=== PATIENT | female | born 1955 | race Caucasian/White ===

== ENCOUNTER → 2018-07-02 | Outpatient (CLI) | payer MEDICARE, MEDICAID ==
--- NOTE | 2018-07-02 09:56 | Diagnostic Imaging Report ---
CLINICAL INDICATION: Patient has had several falls within the last few months. Patient has headaches and vision problems. EXAM: MRI of the brain performed without IV contrast. Sequences include axial DWI, ADC map, axial T2, axial FLAIR, axial T1, axial gradient echo, and sagittal T1. COMPARISON: None. FINDINGS: There is no evidence of acute cerebral infarct, intracranial hemorrhage, or gross mass effect. The brain parenchymal volume appears appropriate for patient's age. There are multiple focal areas of high T2 signal white matter changes involving both cerebral hemispheres, likely representing mild chronic small vessel ischemic disease. There is normal zuñiga-white matter distinction. There is no significant midline shift or herniation. The false pass of Rangel vascular structures show no gross abnormality as visualized. The pituitary gland, sella, and suprasellar regions are unremarkable as visualized. There is no evidence of hydrocephalus. The basal cisterns are unremarkable. The skull, extracranial soft tissue, and orbits are unremarkable. The paranasal sinuses are unremarkable. Temporal bones show no significant abnormality. IMPRESSION: Unremarkable MRI of the brain with mild chronic small vessel ischemic disease. Dictated by: Dictated on workstation # [id number]
== END ==
LOC: RAD 08:43
PROVIDERS: ATTEND Pediatrics
DX: I67.82 Cerebral ischemia (principal); R29.6 Repeated falls; H53.8 Other visual disturbances; Z87.828 Personal history of other (healed) physical injury and trauma
CPT/HCPCS: 70551

== ENCOUNTER → 2020-05-09 | Outpatient (CLI) | payer MEDICARE, MEDICAID ==
--- NOTE | 2020-05-09 11:08 | Diagnostic Imaging Report ---
CT Lung Screening INDICATION:45 pack year smoking history for baseline low-dose CT screening TECHNIQUE: Noncontrast, low-dose CT imaging performed according to the lung cancer screening protocol. Auto Exposure Controls were utilize during the CT exam to meet ALARA standards for radiation dose reduction. COMPARISON:None FINDINGS:Partly calcified benign appearing granuloma left lower lobe posteromedially measured 1 cm. There is some partial atelectasis in the right lower lobe at the lateral costophrenic sulcus. No noncalcified or suspicious pulmonary nodule. No findings to suggest neoplasm. There is no thoracic effusion or pneumothorax. The aorta is calcified but nonaneurysmal. There is fairly dense calcifications associated with the left main and left anterior descending coronary arteries. Visualized upper abdomen nonacute IMPRESSION:No suspicious lung mass or findings of active lung cancer LUNG-RADS CATEGORY:Category 1 MODIFIER:None OTHER SIGNIFICANT FINDINGS:Coronary atherosclerotic vascular calcifications, benign granulomatous residua, no acute appearing abnormality Dictated by: Dictated on workstation # [id number]
--- NOTE | 2020-05-09 13:14 | Diagnostic Imaging Report ---
INDICATION: 64-year-old asymptomatic postmenopausal female. COMPARISON: None available. FINDINGS: AP Spine L1-L4: [BMD (g/cm2): 1.147] [T-Score: -0.4] [Z-Score: 1.3] [BMD Previous: NA] [BMD % Change: NA] LT Hip Neck: [BMD (g/cm2): 0.716] [T-Score: -2.3] [Z-Score: -0.7] LT Hip Total: [BMD (g/cm2):0.740] [T-Score:-2.1] [Z-Score: -0.8] [BMD Previous: NA] [BMD % Change: NA] RT Hip Neck: [BMD (g/cm2):0.637] [T-Score:-2.9] [Z-Score:-1.3] RT Hip Total: [BMD (g/cm2):0.737] [T-score:-2.1] [Z-Score:-0.8] [BMD Previous:NA] [BMD % Change:NA] *Indicates significant change from prior examination based on 95% confidence level. World Health Organization criteria for BMD interpretation classify patients as Normal (T-score at or above -1.0), Osteopenic (T-score between -1.0 and -2.5) or Osteoporotic (T-score at or below -2.5). LIMITATIONS AND MODIFICATION: None. FRACTURE RISK (FRAX SCORE): The ten year probability of (%): Major Osteoporotic Fracture: [16.7] Hip Fracture: [4.7] IMPRESSION: 1. Osteopenia (Low bone mass). 2. Baseline examination. 3. See below National Osteoporosis Foundation guidelines on when to potentially initiate pharmacologic therapy. Based on the National Osteoporosis Foundation Guidelines, pharmacologic treatment should be initiated in any of the following, unless clinical conditions suggest otherwise: * Any patient with prior fragility fracture of the hip or vertebrae. A spine fracture indicates 5X risk for subsequent spine fracture and 2X risk for subsequent hip fracture. * Osteoporosis (T-score <-2.5). * Postmenopausal women and men age 50 and older with low bone mass/osteopenia (T-score between -1.0 and -2.5) by DXA and 10-year major osteoporotic fracture greater than 20% or a 10-year probability of hip fracture greater than 3%. These fracture risks are supplied above in the FRAX score, if applicable. * Clinician judgement and/or patient preferences may indicate treatment for people with 10-year fracture probabilities above or below these levels. Dictated by: Dictated on workstation # [id number]
== END ==
LOC: RAD 08:15
PROVIDERS: ATTEND Pediatrics
DX: M85.80 Other specified disorders of bone density and structure, unspecified site (principal); F17.210 Nicotine dependence, cigarettes, uncomplicated
CPT/HCPCS: 71271; 77080

== ENCOUNTER 2021-03-27 10:11 | Emergency (ER) | payer MEDICARE, MEDICAID ==
[~2021-03-27] VITALS: Ht 152.4 cm; Wt 53.6 kg
--- NOTE | 2021-03-27 10:20 | ED Integumentary General ---
General Stated Complaint: AMS History of Present Illness Date Seen by Provider: Mar 27, 2021 Time Seen by Provider: 10:20 Initial Comments 65-year-old female brought in by EMS. Patient was found on her floor this morning but unsure who. Patient is the believed to been laying on her floor for at least 2 to 3 days. Patient reports she just last remembers doing them 4 days ago. Patient is complaining of pain especially in her hips. Patient denies any fever, chills, nausea or vomiting. EMS reports that she frequently drinks large amounts of alcohol and also uses narcotic pain medication frequently. Allergies and Home Medications Allergies Coded Allergies: No Known Drug Allergies (Unverified , 03/27/21) Patient Home Medication List Home Medication List Reviewed: Yes Review of Systems Review of Systems Constitutional: see HPI; No chills, No fever; weakness EENTM: no symptoms reported Respiratory: No cough, No short of breath Cardiovascular: No chest pain, No palpitations Gastrointestinal: No abdominal pain, No nausea, No vomiting Musculoskeletal: see HPI Skin: no symptoms reported Psychiatric/Neurological: See HPI Endocrine: No Symptoms Reported Hematologic/Lymphatic: No Symptoms Reported Physical Exam Vital Signs Vital Signs - First Documented 03/27/21 10:14 Temp 36.0 Pulse 75 Resp 16 B/P (MAP) 151/77 (101) O2 Delivery Room Air Capillary Refill : General Appearance: other (Chronically ill, unkept) Cardiovascular: regular rate, rhythm, no edema Respiratory: lungs clear, normal breath sounds, no respiratory distress, no accessory muscle use Gastrointestinal: soft Extremities: other (Tenderness to palpation right hip with shortening and rotation of the right leg,) Neurologic/Psychiatric: alert, other (alert to person, states she "is nuts" ) Skin: jaundice Skin Problem Location: face Progress/Results/Core Measures Results/Orders Lab Results Laboratory Tests Test 03/27/21 10:24 03/27/21 10:40 Range/Units White Blood Count 16.2 H 4.3-11.0 10^3/uL Red Blood Count 4.86 3.80-5.11 10^6/uL Hemoglobin 14.2 11.5-16.0 g/dL Hematocrit 43 35-52 % Mean Corpuscular Volume 89 80-99 fL Mean Corpuscular Hemoglobin 29 25-34 pg Mean Corpuscular Hemoglobin Concent 33 32-36 g/dL Red Cell Distribution Width 13.2 10.0-14.5 % Platelet Count 444 H 130-400 10^3/uL Mean Platelet Volume 9.3 9.0-12.2 fL Immature Granulocyte % (Auto) 0 % Neutrophils (%) (Auto) 82 H 42-75 % Lymphocytes (%) (Auto) 13 12-44 % Monocytes (%) (Auto) 5 0-12 % Eosinophils (%) (Auto) 0 0-10 % Basophils (%) (Auto) 0 0-10 % Neutrophils # (Auto) 13.2 H 1.8-7.8 10^3/uL Lymphocytes # (Auto) 2.0 1.0-4.0 10^3/uL Monocytes # (Auto) 0.8 0.0-1.0 10^3/uL Eosinophils # (Auto) 0.0 0.0-0.3 10^3/uL Basophils # (Auto) 0.1 0.0-0.1 10^3/uL Immature Granulocyte # (Auto) 0.1 0.0-0.1 10^3/uL Neutrophils % (Manual) 82 % Lymphocytes % (Manual) 8 % Monocytes % (Manual) 6 % Eosinophils % (Manual) 0 % Basophils % (Manual) 0 % Band Neutrophils 3 % Atypical Lymphocytes 1 % Platelet Estimate INCREASED Blood Morphology Comment NORMAL Urine Color DARK YELLOW Urine Clarity SL CLOUDY Urine pH 6.0 5-9 Urine Specific [place] >=1.030 1.016-1.022 Urine Protein 2+ H NEGATIVE Urine Glucose (UA) NEGATIVE NEGATIVE Urine Ketones 3+ H NEGATIVE Urine Nitrite NEGATIVE NEGATIVE Urine Bilirubin 1+ H NEGATIVE Urine Urobilinogen 0.2 < = 1.0 MG/DL Urine Leukocyte Esterase NEGATIVE NEGATIVE Urine RBC (Auto) 2+ H NEGATIVE Urine RBC 2-5 H /HPF Urine WBC 5-10 H /HPF Urine Squamous Epithelial Cells 2-5 /HPF Urine Crystals NONE /LPF Urine Bacteria FEW H /HPF Urine Casts PRESENT /LPF Urine Hyaline Casts 25-50 H /LPF Urine Mucus MODERATE H /LPF Urine Culture Indicated YES Sodium Level 144 135-145 MMOL/L Potassium Level 3.2 L 3.6-5.0 MMOL/L Chloride Level 102 98-107 MMOL/L Carbon Dioxide Level 17 L 21-32 MMOL/L Anion Gap 25 H 5-14 MMOL/L Blood Urea Nitrogen 17 7-18 MG/DL Creatinine 0.39 L 0.60-1.30 MG/DL Estimat Glomerular Filtration Rate 109 BUN/Creatinine Ratio 44 Glucose Level 129 H 70-105 MG/DL Lactic Acid Level 0.85 0.50-2.00 MMOL/L Calcium Level 10.3 H 8.5-10.1 MG/DL Corrected Calcium 10.2 H 8.5-10.1 MG/DL Magnesium Level 2.2 1.6-2.4 MG/DL Total Bilirubin 0.7 0.1-1.0 MG/DL Aspartate Amino Transf (AST/SGOT) 57 H 5-34 U/L Alanine Aminotransferase (ALT/SGPT) 42 0-55 U/L Alkaline Phosphatase 75 40-136 U/L Troponin I < 0.30 <0.30 NG/ML C-Reactive Protein 14.28 H <0.50 MG/DL Total Protein 7.9 6.4-8.2 GM/DL Albumin 4.1 3.2-4.5 GM/DL Serum Alcohol < 10 <10 MG/DL My Orders Orders - SIMMONS,MARILEE L DO Ct Head Wo (03/27/21 10:21) Chest 1 View Ap/Pa Only (03/27/21 10:21) Pelvis/Real Hips 2 View (03/27/21 10:21) Ekg Tracing (03/27/21 10:21) Monitor-Rhythm Ecg Trace Only (03/27/21 10:21) Creatine Kinase (03/27/21 10:21) Alcohol (03/27/21 10:21) Cbc With Automated Diff (03/27/21 10:21) Comprehensive Metabolic Panel (03/27/21 10:21) Lactic Acid Analyzer (03/27/21 10:21) Magnesium (03/27/21 10:21) Ua Culture If Indicated (03/27/21 10:21) Crp Fs (03/27/21 10:21) Troponin I Fs (03/27/21 10:21) Ammonia (03/27/21 10:40) Manual Differential (03/27/21 10:24) Lactated Ringers (Lr 1000 Ml Iv Solution (03/27/21 10:58) Urine Culture (03/27/21 10:40) Ceftriaxone 1 Gm Pre-Mix (Rocephin 1 Gm (03/27/21 11:51) Morphine Injection (Morphine Injection (03/27/21 12:24) Ns Iv 1000 Ml (Sodium Chloride 0.9%) (03/27/21 12:51) Vital Signs/I&O 03/27/21 10:14 Temp 36.0 Pulse 75 Resp 16 B/P (MAP) 151/77 (101) O2 Delivery Room Air Progress Progress Note : Progress Note Patient with right hip fracture, urinary tract infection. Patient to be transferred ER to ER to [facility] [place]. Did call of both [facility] and [facility] and there was no bed availability prior to transfer to [place]. Initial ECG Impression Date: Mar 27, 2021 Initial ECG Impression Time: 11:32 Initial ECG Rate: 71 Initial ECG Rhythm: A Fib/Flutter Comment non acute findings. Diagnostic Imaging Diagonstic Imaging: CT Plain Films/CT/US/NM/MRI: head Comments Date of Exam:03/27/21 CT HEAD WO INDICATION: Altered mental status. Weakness. TECHNIQUE: Routine non contrast-enhanced axial images were obtained from the skull base to the vertex. Auto Exposure Controls were utilized during the CT exam to meet ALARA standards for radiation dose reduction COMPARISON: None. FINDINGS: The ventricles and cortical sulci are diffusely prominent, compatible with age-related volume loss. There are confluent areas of abnormal, low attenuation in the periventricular white matter. This is consistent with small vessel ischemic changes; age-indeterminate. There is no prior study available for comparison. There is no midline shift or mass-effect. No acute intra-axial hemorrhage is seen. There are no abnormal areas of increased or decreased density to suggest acute hemorrhage or edema. No extra-axial masses or collections are present. The bony calvarium is intact. The visualized paranasal sinuses show scattered mucosal thickening with small air-fluid level in the left sphenoid sinus. The mastoid air cells are clear. IMPRESSION: 1. No acute intracranial abnormality. No CT evidence of mass, acute infarct or intracranial hemorrhage. 2. Small vessel ischemic changes in the periventricular and subcortical white matter; likely chronic. 3. Paranasal sinus disease. Please correlate for underlying acute sinusitis. Reviewed: Reviewed/Discussed Diagonstic Imaging: Xray Plain Films/CT/US/NM/MRI: chest Comments Date of Exam:03/27/21 CHEST 1 VIEW AP/PA ONLY CHEST 1 VIEW AP/PA ONLY Indication: Injury from fall Comparison: None available. Findings: No focal airspace disease in the visualized lungs. Please note that the posterior lower lobes are poorly evaluated by portable radiography. No pleural effusion or pneumothorax. Normal cardiomediastinal silhouette. Impression: 1. No acute cardiopulmonary process by portable radiography. Reviewed: Reviewed by Me, Reviewed/Discussed Diagonstic Imaging: Xray Comments Date of Exam:03/27/21 PELVIS/REAL HIPS 2 VIEW INDICATION: Hip pain after fall. COMPARISON: None available. TECHNIQUE: AP pelvis with AP and frog-leg lateral views of both hips. FINDINGS: RIGHT HIP: There is an acute simple transverse fracture in the subcapital region of the femoral neck. The fracture is mildly impacted. The femur is externally rotated. LEFT HIP: No acute fracture about the left hip. No displaced fracture in the pelvis. Anastomotic staple lines are noted within the pelvis. IMPRESSION: 1. Acute subcapital fracture of the right femoral neck is mildly displaced. Reviewed: Reviewed by Me, Reviewed/Discussed Departure Impression Primary Impression: Fall Qualified Codes: W19.XXXA - Unspecified fall, initial encounter Additional Impressions: Hip fracture, right Qualified Codes: S72.001A - Fracture of unspecified part of neck of right femur, initial encounter for closed fracture Urinary tract infection Qualified Codes: N30.01 - Acute cystitis with hematuria Disposition: SHT-TRM HOSP Condition: Stable Transfer Transfer Reason: Diversion Time Spoke to Accepting Phy: 12:49 Transfer Progress Notes pt transferred ER to ER, acceptind Ayana Benavides-ortho Transfer Facility: [facility] Method of Transfer: EMS Departure-Patient Inst. Referrals: CHENG BARRERA MD (PCP/Family) Primary Care Physician MARILEE SIMMONS DO Mar 27, 2021 10:20
[2021-03-27 10:49] LABS: CLARITY,URINE SL CLOUDY; GLUCOSE, URINE (UA) NEGATIVE (NEGATIVE); KETONES,URINE 3+ (NEGATIVE); LEUKOCYTE ESTERASE ,URINE NEGATIVE (NEGATIVE); NITRITE,URINE NEGATIVE (NEGATIVE); PROTEIN,URINE 2+ (NEGATIVE)
[2021-03-27 10:51] LABS: BASOPHILS # (AUTO) 0.1 10^3/uL (0.0-0.1); BASOPHILS % (AUTO) 0 % (0-10); EOSINOPHILS % (AUTO) 0 % (0-10); HEMATOCRIT 43 % (35-52); HEMOGLOBIN 14.2 g/dL (11.5-16.0); LYMPHOCYTES % (AUTO) 13 % (12-44); MEAN CORPUSCULAR HEMOGLOBIN 29 pg (25-34); MEAN CORPUSCULAR HGB CONC 33 g/dL (32-36); MEAN CORPUSCULAR VOLUME 89 fL (80-99); MEAN PLATELET VOLUME 9.3 fL (9.0-12.2); MONOCYTES # (AUTO) 0.8 10^3/uL (0.0-1.0); MONOCYTES % (AUTO) 5 % (0-12); NEUTROPHILS # (AUTO) 13.2 10^3/uL (1.8-7.8); NEUTROPHILS % (AUTO) 82 % (42-75); PLATELET COUNT 444 10^3/uL (130-400); WHITE BLOOD COUNT 16.2 10^3/uL (4.3-11.0)
[2021-03-27] MEDS ORDERED: LACTATED RINGERS 1,000 ML IV STA (10:58)
--- NOTE | 2021-03-27 11:22 | Diagnostic Imaging Report ---
INDICATION: Altered mental status. Weakness. TECHNIQUE: Routine non contrast-enhanced axial images were obtained from the skull base to the vertex. Auto Exposure Controls were utilized during the CT exam to meet ALARA standards for radiation dose reduction COMPARISON: None. FINDINGS: The ventricles and cortical sulci are diffusely prominent, compatible with age-related volume loss. There are confluent areas of abnormal, low attenuation in the periventricular white matter. This is consistent with small vessel ischemic changes; age-indeterminate. There is no prior study available for comparison. There is no midline shift or mass-effect. No acute intra-axial hemorrhage is seen. There are no abnormal areas of increased or decreased density to suggest acute hemorrhage or edema. No extra-axial masses or collections are present. The bony calvarium is intact. The visualized paranasal sinuses show scattered mucosal thickening with small air-fluid level in the left sphenoid sinus. The mastoid air cells are clear. IMPRESSION: 1. No acute intracranial abnormality. No CT evidence of mass, acute infarct or intracranial hemorrhage. 2. Small vessel ischemic changes in the periventricular and subcortical white matter; likely chronic. 3. Paranasal sinus disease. Please correlate for underlying acute sinusitis. Dictated by: Dictated on workstation # [id number]
--- NOTE | 2021-03-27 11:24 | Diagnostic Imaging Report ---
CHEST 1 VIEW AP/PA ONLY Indication: Injury from fall Comparison: None available. Findings: No focal airspace disease in the visualized lungs. Please note that the posterior lower lobes are poorly evaluated by portable radiography. No pleural effusion or pneumothorax. Normal cardiomediastinal silhouette. Impression: 1. No acute cardiopulmonary process by portable radiography. Dictated by: Dictated on workstation # [id number]
--- NOTE | 2021-03-27 11:25 | Diagnostic Imaging Report ---
INDICATION: Hip pain after fall. COMPARISON: None available. TECHNIQUE: AP pelvis with AP and frog-leg lateral views of both hips. FINDINGS: RIGHT HIP: There is an acute simple transverse fracture in the subcapital region of the femoral neck. The fracture is mildly impacted. The femur is externally rotated. LEFT HIP: No acute fracture about the left hip. No displaced fracture in the pelvis. Anastomotic staple lines are noted within the pelvis. IMPRESSION: 1. Acute subcapital fracture of the right femoral neck is mildly displaced. Dictated by: Dictated on workstation # [id number]
[2021-03-27 11:29] LABS: BUN/CREATININE RATIO 44; CARBON DIOXIDE 17 MMOL/L (21-32); CHLORIDE 102 MMOL/L (98-107); CREATININE SERUM 0.39 MG/DL (0.60-1.30); GFR ESTIMATED 109; POTASSIUM 3.2 MMOL/L (3.6-5.0); SODIUM 144 MMOL/L (135-145)
[2021-03-27 11:30] LABS: ALANINE AMINOTRANSFERASE 42 U/L (0-55); ALBUMIN 4.1 GM/DL (3.2-4.5); ALKALINE PHOSPHATASE 75 U/L (40-136); BILIRUBIN,TOTAL 0.7 MG/DL (0.1-1.0); CALCIUM 10.3 MG/DL (8.5-10.1); GLUCOSE 129 MG/DL (70-105); MAGNESIUM 2.2 MG/DL (1.6-2.4); TOTAL PROTEIN 7.9 GM/DL (6.4-8.2)
[2021-03-27 11:43] LABS: BAND NEUTROPHILS 3 %; LYMPHOCYTES % (MANUAL) 8 %; NEUTROPHILS % (MANUAL) 82 %
[2021-03-27 11:44] LABS: ATYPICAL LYMPHOCYTES 1 %; BASOPHILS % (MANUAL) 0 %; EOSINOPHILS % (MANUAL) 0 %; MONOCYTES % (MANUAL) 6 %; PLATELET ESTIMATE INCREASED; RBC MORPH NORMAL
[2021-03-27 11:45] LABS: BACTERIA,URINE FEW /HPF; COLOR,URINE DARK YELLOW; HYALINE CASTS, URINE 25-50 /LPF
[2021-03-27 11:46] LABS: BILIRUBIN,URINE 1+ (NEGATIVE)
[2021-03-27] MEDS ORDERED: cefTRIAXone 1 GM PRE-MIX 50 ML IV STA (11:51)
[2021-03-27] MEDS ORDERED: morphine INJ 10 MG/ML 1ML (SYR OR VIAL) IVP STA (12:24)
[2021-03-27] MEDS ORDERED: NS IV 1000 ML 1,000 ML IV STA (12:51)
[2021-03-27 13:28] VITALS: BP 147/86
[2021-03-27 15:31] LABS: CREATINE KINASE 906 U/L (29-168)
== END 2021-03-27 13:28 | disposition short-term general hospital (02) ==
LOC: EDUNIT# 10:11 → ER FS 10:12
DX: S72.011A Unspecified intracapsular fracture of right femur, initial encounter for closed fracture (principal); N39.0 Urinary tract infection, site not specified; X58.XXXA Exposure to other specified factors, initial encounter
CPT/HCPCS: 36415; 70450; 71045; 73521; 80053; 81000; 82140; 82550; 83605; 83735; 84484; 85007; 85027; 86141; 87088; 93041; 99285; G0480; 80320

== ENCOUNTER 2022-03-27 20:56 | Emergency (ER) | payer MEDICARE, MEDICAID ==
[~2022-03-27] VITALS: Ht 155 cm; Wt 59.0 kg
[2022-03-27 21:05] VITALS: BP 160/68
--- NOTE | 2022-03-27 22:06 | ED Upper Extremity ---
General Chief Complaint: Laceration Stated Complaint: R ELBOW LAC Nursing Triage Note: Pt presents with c/o R elbow laceration. Pt states she fell while backing up with her walker, and hit her elbow on a tv stand. Pt denies hitting her head or loss of consciousness. She denies any other injury. Source: patient Exam Limitations: no limitations History of Present Illness Date Seen by Provider: Mar 27, 2022 Time Seen by Provider: 21:00 Initial Comments Patient is a 66-year-old female presents with right elbow laceration and left knee pain after falling while tripping with a walker. Patient denies hitting her head, headache, loss of consciousness or neck pain. No other acute symptoms or complaint. Date of last tetanus is unknown Onset: just prior to arrival Severity: moderate Method of Injury: other Modifying Factors: Improves With Other Allergies and Home Medications Allergies Coded Allergies: No Known Drug Allergies (Unverified , 03/27/21) Patient Home Medication List Home Medication List Reviewed: Yes Review of Systems Constitutional: no symptoms reported, see HPI EENTM: see HPI Musculoskeletal: see HPI Skin: see HPI Psychiatric/Neurological: See HPI Past Kevzmxk-Ekjhsl-Unwhvy Hx Patient Social History Tobacco Use?: No Immunizations Up To Date Influenza Vaccine Up-to-Date: No; Not Current Physical Exam Vital Signs Vital Signs - First Documented 03/27/22 21:05 Temp 36.3 Pulse 110 Resp 18 B/P (MAP) 160/68 (98) Capillary Refill : Less Than 3 Seconds Height, Weight, BMI Height: '" Weight: lbs. oz. kg; 24.00 BMI Method: General Appearance: WD/WN, no apparent distress HEENT: PERRL/EOMI Neck: non-tender, full range of motion, supple Respiratory: lungs clear Gastrointestinal: non tender, soft Shoulder: non-tender Elbow/Forearm: Right, soft tissue tenderness (3 cm chevron shaped right posterior elbow laceration, wound is clean, bleeding is controlled. Range of motion is preserved.) Neurologic/Psychiatric: alert, oriented x 3 Skin: normal color Left knee tenderness, swelling, no deformities bruising or swelling. Tenderness to palpation. Range of motion intact Procedures/Interventions Wound Location: Upper Extremities Other Wound Location 3 cm Wound Explored: clean Staple Repair: Stapler 35W Number of Sutures: 6 Layer Closure?: 1 Wound cleansed, explored, closed with 6 aminata, Progress/Results/Core Measures Results/Orders My Orders Orders - CHRIS MCGREGOR DO Elbow 3 View Right (03/27/22 21:32) Knee 3 View Left (03/27/22 21:51) Dipht,Pertuss(Acell),Tet Adult (Boostrix (03/27/22 22:15) Vital Signs/I&O 03/27/22 21:05 Temp 36.3 Pulse 110 Resp 18 B/P (MAP) 160/68 (98) Blood Pressure Mean: 98 Departure Communication (Admissions) Right x-ray elbow: No obvious displaced fracture. Left knee: No obvious displaced fracture Mechanical fall with right elbow laceration without fracture dislocation, left knee injury without deformity. Wound cleansed and closed and tetanus updated. Typical wound care instructions provided provided Impression Primary Impression: Fall Additional Impression: Laceration of right elbow Disposition: HOME, SELF-CARE Condition: Stable Departure-Patient Inst. Decision time for Depature: 22:15 Referrals: CHENG BARRERA MD (PCP/Family) Primary Care Physician Patient Instructions: Laceration Repair With [place] [facility] Add. Discharge Instructions: You were evaluated in the emergency department for a fall from standing. X-rays of your right elbow and knee were performed did not show evidence of fracture or dislocation. Please take Tylenol for pain, keep wounds clean dry and covered. Return to the ED in 10 to 12 days for staple removal or sooner if signs of infection All discharge instructions reviewed with patient and/or family. Voiced understanding. CHRIS MCGREGOR DO Mar 27, 2022 22:06
[2022-03-27] MEDS ORDERED: TETANUS,DIPTH,PERTUSS P/F (BOOSTRIX) 0.5 ML VIAL IM ONE (22:15)
--- NOTE | 2022-03-28 06:55 | Diagnostic Imaging Report ---
Indication: Right elbow injury 3 views of the right elbow show no fracture, dislocation or pathologic effusion. IMPRESSION: Negative right elbow Dictated by: Dictated on workstation # [id number]
--- NOTE | 2022-03-28 06:56 | Diagnostic Imaging Report ---
Indication: Left knee injury 3 views of the left knee show narrowing of the medial tibiofemoral joint space with small osteophytes forming along the medial articular margin. There is no fracture, dislocation or pathologic effusion. IMPRESSION: Moderate degenerative change medial compartment left knee. No acute abnormality seen. Dictated by: Dictated on workstation # [id number]
== END 2022-03-27 23:18 | disposition home or self-care (01) ==
LOC: EDUNIT# 20:56 → ER FS 20:57
DX: S51.011A Laceration without foreign body of right elbow, initial encounter (principal); S89.92XA Unspecified injury of left lower leg, initial encounter; Z23 Encounter for immunization; Z28.310 Unvaccinated for COVID-19; W01.190A Fall on same level from slipping, tripping and stumbling with subsequent striking against furniture, initial encounter; Y93.01 Activity, walking, marching and hiking
CPT/HCPCS: 73080; 73562; 90715

== ENCOUNTER 2022-03-28 11:11 | Emergency (ER) | payer MEDICARE, MEDICAID ==
--- NOTE | 2022-03-28 11:26 | ED Fall/Injury ---
General Stated Complaint: LWR BACK PAIN Source: patient, EMS, old records Exam Limitations: no limitations History of Present Illness Date Seen by Provider: Mar 28, 2022 Time Seen by Provider: 11:14 Initial Comments 66-year-old female on Holly coming in via EMS from home due to back pain. The patient had a fall yesterday tripping up on a carpet with her walker. Had an elbow laceration and knee pain and was seen in the emergency department last night. The laceration was closed with aminata. X-rays were negative for fractures. Seems a little bit more confused for one of her caregivers today and now she is complaining of back pain. She has been ambulatory, was able to get up and around the house by her self today, and got herself dressed despite the pain. Otherwise denying any other acute complaints. Allergies and Home Medications Allergies Coded Allergies: No Known Drug Allergies (Unverified , 03/27/21) Patient Home Medication List Home Medication List Reviewed: Yes Review of Systems Review of Systems Constitutional: No fever Eyes: No Symptoms Reported Ears, Nose, Mouth, Throat: no symptoms reported Respiratory: no symptoms reported Cardiovascular: no symptoms reported Gastrointestinal: no symptoms reported Genitourinary: no symptoms reported Musculoskeletal: see HPI Skin: no symptoms reported Psychiatric/Neurological: See HPI All Other Systems Reviewed Negative Unless Noted: Yes Past Iuuqpot-Pntowp-Crmajb Hx Patient Social History Tobacco Use?: No Physical Exam Vital Signs Vital Signs - First Documented 03/28/22 11:25 Temp 35.9 Pulse 103 Resp 16 B/P (MAP) 148/58 (88) Pulse Ox 100 O2 Delivery Room Air Capillary Refill : Height, Weight, BMI Height: '" Weight: lbs. oz. kg; 24.00 BMI Method: General Appearance: WD/WN, no apparent distress HEENT: PERRL/EOMI, pharynx normal, other (Dried blood to the outside of the right ear with a small abrasion) Neck: non-tender, full range of motion, supple, normal inspection Cardiovascular: regular rate, rhythm, no edema, no murmur Respiratory: chest non-tender, lungs clear, normal breath sounds, no respiratory distress, no accessory muscle use Gastrointestinal: normal bowel sounds, non tender, soft; No distended, No guarding, No rebound Back: normal inspection, no CVA tenderness, vertebral tenderness (Lower thoracic and lumbar spine with pain mostly paravertebral) Extremities: normal range of motion, non-tender, no pedal edema, no calf tenderness, normal capillary refill, other (laceration to right elbow with repair with aminata) Neurologic/Psychiatric: no motor/sensory deficits, alert, normal mood/affect, other (oriented to self and location) Skin: normal color, warm/dry Lymphatic: no adenopathy [place] Coma Score Best Eye Response: (4) Open Spontaneously Best Verbal Response: (5) Oriented Best Motor Response: (6) Obeys Commands Progress/Results/Core Measures Results/Orders Lab Results Laboratory Tests Test 03/28/22 11:30 Range/Units White Blood Count 12.5 H 4.3-11.0 10^3/uL Red Blood Count 4.19 3.80-5.11 10^6/uL Hemoglobin 11.5 11.5-16.0 g/dL Hematocrit 35 35-52 % Mean Corpuscular Volume 84 80-99 fL Mean Corpuscular Hemoglobin 27 25-34 pg Mean Corpuscular Hemoglobin Concent 33 32-36 g/dL Red Cell Distribution Width 13.6 10.0-14.5 % Platelet Count 527 H 130-400 10^3/uL Mean Platelet Volume 8.5 L 9.0-12.2 fL Immature Granulocyte % (Auto) 0 % Neutrophils (%) (Auto) 80 H 42-75 % Lymphocytes (%) (Auto) 12 12-44 % Monocytes (%) (Auto) 7 0-12 % Eosinophils (%) (Auto) 1 0-10 % Basophils (%) (Auto) 0 0-10 % Neutrophils # (Auto) 10.0 H 1.8-7.8 10^3/uL Lymphocytes # (Auto) 1.5 1.0-4.0 10^3/uL Monocytes # (Auto) 0.9 0.0-1.0 10^3/uL Eosinophils # (Auto) 0.1 0.0-0.3 10^3/uL Basophils # (Auto) 0.0 0.0-0.1 10^3/uL Immature Granulocyte # (Auto) 0.0 0.0-0.1 10^3/uL Sodium Level 136 135-145 MMOL/L Potassium Level 3.9 3.6-5.0 MMOL/L Chloride Level 94 L 98-107 MMOL/L Carbon Dioxide Level 27 21-32 MMOL/L Anion Gap 15 H 5-14 MMOL/L Blood Urea Nitrogen 12 7-18 MG/DL Creatinine 1.53 H 0.60-1.30 MG/DL Estimat Glomerular Filtration Rate 37 BUN/Creatinine Ratio 8 Glucose Level 127 H 70-105 MG/DL Calcium Level 9.9 8.5-10.1 MG/DL Corrected Calcium 8.5-10.1 MG/DL Total Bilirubin 0.3 0.1-1.0 MG/DL Aspartate Amino Transf (AST/SGOT) 125 H 5-34 U/L Alanine Aminotransferase (ALT/SGPT) 35 0-55 U/L Alkaline Phosphatase 93 40-136 U/L Total Protein 7.8 6.4-8.2 GM/DL Albumin 4.7 H 3.2-4.5 GM/DL My Orders Orders - DIVINE FREEMAN MD Ct Head/Cervical Spine Wo (03/28/22 11:20) Cbc With Automated Diff (03/28/22 11:20) Comprehensive Metabolic Panel (03/28/22 11:20) Ct Chest/Abdomen/Pelvis Wo (03/28/22 11:27) Ed Iv/Invasive Line Start (03/28/22 12:00) Ns Iv 500 Ml (Sodium Chloride 0.9%) (03/28/22 12:00) Medications Given in ED Current Medications Medications Dose Ordered Sig/Prasanth Route Start Time Stop Time Status Last Admin Dose Admin Sodium Chloride 500 ml @ 0 mls/hr Q0M ONCE IV 03/28/22 12:00 03/28/22 12:02 DC 03/28/22 12:04 0 MLS/HR Vital Signs/I&O 03/28/22 03/28/22 11:25 13:52 Temp 35.9 35.9 Pulse 103 98 Resp 16 16 B/P (MAP) 148/58 (88) 135/67 Pulse Ox 100 96 O2 Delivery Room Air Room Air Progress Progress Note : Progress Note 66-year-old female with above history coming in via EMS from home after a fall that happened yesterday and she had already been evaluated. Having more pain in her back today that she was not complaining of yesterday. Also having mild headache and is on Eliquis. CT head, total spine, chest, abdomen, and pelvis ordered given multiple falls on Eliquis with some mild confusion today. My interpretation I do not see any obvious bleeding of the CT head and I do not see any obvious spinal fracture where she is hurting. The patient has been amb ulating and I have a lower suspicion for any type of occult fracture. She does have a slightly elevated creatinine today compared to baseline so she was given some IV fluids. She is tolerating p.o. fluids as well and I will marriage counselor her on drinking extra fluids for the next couple of days. I was reviewing the patient's medication list and she is on numerous medications that could be causing her falls including buprenorphine, baclofen, clonazepam, olanzapine, mirtazapine, and hydroxyzine. The only other real medication she takes is Eliquis. I discussed with the patient that these medications are very high risk with her age for her continued falls which is what she typically comes to the emergency department for. She appears to be slightly sedated from these medications naturally. I discussed with the patient as well as her friend/caregiver stopping some of these medicines. I identified the hydroxyzine as the 1 that she likely could stop right now with the least amount of side effects from stopping. She should discuss with her doctor lowering dosages and stopping some of these medications. I am unsure if the patient will comply with this as she is even asking while in the ER if she can take all of these pills right now. She does have somebody that can be at home with her today. I believe she is otherwise stable for discharge with outpatient follow-up. She was sent home with strict return precautions Diagnostic Imaging Diagonstic Imaging: CT (head, C/T/L spine, CAP without) Comments NAME: BERNARD ROSA [facility] REC#: [id number] PT STATUS: REG ER : 1955 PHYSICIAN: DIVINE FREEMAN MD ADMIT DATE: 03/28/22/ER FS Draft Date of Exam:03/28/22 CT HEAD/CERVICAL SPINE WO PROCEDURE: CT head and CT cervical spine without contrast. TECHNIQUE: Multiple contiguous axial images were obtained through the brain and cervical spine without the use of intravenous contrast. Sagittal and coronal reformations through the cervical spine were then performed. Auto Exposure Controls were utilized during the CT exam to meet ALARA standards for radiation dose reduction. INDICATION: Fall. Altered mental status. Injury. COMPARISON: 03/27/2021. FINDINGS: CT HEAD: The ventricles and cortical sulci are diffusely prominent, compatible with age-related volume loss. There are confluent areas of abnormal, low attenuation in the periventricular white matter. This is consistent with chronic small vessel ischemic changes. There is no midline shift or mass-effect. No acute intra-axial hemorrhage is seen. There are no abnormal areas of increased or decreased density to suggest acute hemorrhage or edema. No extra-axial masses or collections are present. The bony calvarium is intact. The visualized paranasal sinuses show minimal scattered mucosal thickening. The mastoid air cells are clear. CT CERVICAL SPINE: Static alignment of the cervical spine is maintained. There is no significant scarlett- or retro-listhesis. There is no evidence of jumped facets. Vertebral body heights are maintained. There is no acute fracture. No bony fragments are seen within the spinal canal. Mild multilevel degenerative changes are noted. Pre- and para-vertebral soft tissue structures are unremarkable. There is calcified carotid atherosclerosis. Included portions of the lung apices show mild emphysematous changes. There is also 1.2 cm hypodense left thyroid nodule. IMPRESSION: 1. No acute intracranial abnormality. No CT evidence of mass, acute infarct or intracranial hemorrhage. 2. Chronic small vessel ischemic changes in the deep white matter. 3. No acute fracture or dislocation of the cervical spine. 4. Hypodense left thyroid nodule. Correlation with dedicated thyroid sonogram is recommended and could be performed on a nonemergent basis. Dictated on workstation # [id number] Dict: 03/28/22 1154 Trans: 03/28/22 [id number] [id number] Interpreted by: VINOD KEE MD Electronically signed by: PT STATUS: REG ER : 1955 PHYSICIAN: DIVINE FREEMAN MD ADMIT DATE: 03/28/22/ER FS Draft Date of Exam:03/28/22 CT CHEST/ABDOMEN/PELVIS WO PROCEDURE: CT chest, abdomen, and pelvis without contrast. TECHNIQUE: Multiple contiguous axial images were obtained through the chest, abdomen, and pelvis without the use of intravenous contrast. Auto Exposure Controls were utilized during the CT exam to meet ALARA standards for radiation dose reduction. INDICATION: Fall and confusion. FINDINGS: CT CHEST: No mediastinal hematoma is identified. No pericardial or pleural fluid is identified. No definite pulmonary contusion or pneumothorax is detected. Bony structures appear nonacute. IMPRESSION: Unremarkable noncontrast CT of the chest. CT ABDOMEN AND PELVIS: Evaluation of the abdominal and pelvic solid visceral organs is limited without intravenous contrast. No definite focal liver or splenic abnormality is seen. There is no perihepatic or perisplenic fluid. Gallbladder is unremarkable. Pancreas is unremarkable. Adrenal glands and kidneys are unremarkable. Aorta is calcified but nonaneurysmal. No free fluid or hemoperitoneum is identified. The bowel loops are normal in caliber. There is uncomplicated sigmoid diverticulosis. The bladder is unremarkable. There is a small left ovarian cyst measuring 26 mm. Evaluation of bony structures does show postop changes to the right hip. No acute bony abnormality is identified. IMPRESSION: 1. No evidence of abdominal or pelvic visceral injury. 2. Uncomplicated diverticulosis. Dictated on workstation # [id number] Dict: 03/28/22 1314 Trans: 03/28/22 1327 [id number] Interpreted by: JACK POWER MD Electronically signed by: Departure Impression Primary Impression: Polypharmacy Additional Impressions: Thyroid nodule TABATHA (acute kidney injury) Back pain Qualified Codes: M54.50 - Low back pain, unspecified Disposition: 01 HOME, SELF-CARE Condition: Stable Departure-Patient Inst. Decision time for Depature: 13:40 Referrals: CHENG BARRERA MD (PCP/Family) Primary Care Physician Patient Instructions: Medication Safety, Adult, Preventing Falls ED Add. Discharge Instructions: There is a small thyroid nodule on the left side which you may already know about. Discussed this with your regular doctor as they may want to do an ultrasound as an outpatient. Copy Copies To 1: FRANTZ FELDMAN ZACHARY K MD Mar 28, 2022 11:26
[2022-03-28 11:35] LABS: BASOPHILS % (AUTO) 0 % (0-10); EOSINOPHILS # (AUTO) 0.1 10^3/uL (0.0-0.3); EOSINOPHILS % (AUTO) 1 % (0-10); HEMATOCRIT 35 % (35-52); HEMOGLOBIN 11.5 g/dL (11.5-16.0); LYMPHOCYTES # (AUTO) 1.5 10^3/uL (1.0-4.0); LYMPHOCYTES % (AUTO) 12 % (12-44); MEAN CORPUSCULAR HEMOGLOBIN 27 pg (25-34); MEAN CORPUSCULAR HGB CONC 33 g/dL (32-36); MEAN CORPUSCULAR VOLUME 84 fL (80-99); MEAN PLATELET VOLUME 8.5 fL (9.0-12.2); MONOCYTES # (AUTO) 0.9 10^3/uL (0.0-1.0); MONOCYTES % (AUTO) 7 % (0-12); NEUTROPHILS % (AUTO) 80 % (42-75); PLATELET COUNT 527 10^3/uL (130-400); WHITE BLOOD COUNT 12.5 10^3/uL (4.3-11.0)
[2022-03-28 11:55] LABS: ALANINE AMINOTRANSFERASE 35 U/L (0-55); ALKALINE PHOSPHATASE 93 U/L (40-136); BILIRUBIN,TOTAL 0.3 MG/DL (0.1-1.0); BUN/CREATININE RATIO 8; CALCIUM 9.9 MG/DL (8.5-10.1); CARBON DIOXIDE 27 MMOL/L (21-32); CHLORIDE 94 MMOL/L (98-107); CREATININE SERUM 1.53 MG/DL (0.60-1.30); GFR ESTIMATED 37; GLUCOSE 127 MG/DL (70-105); POTASSIUM 3.9 MMOL/L (3.6-5.0); SODIUM 136 MMOL/L (135-145); TOTAL PROTEIN 7.8 GM/DL (6.4-8.2)
[2022-03-28 11:56] LABS: ALBUMIN 4.7 GM/DL (3.2-4.5)
[2022-03-28] MEDS ORDERED: NS IV 500 ML 500 ML IV ONE (12:00)
--- NOTE | 2022-03-28 12:04 | Diagnostic Imaging Report ---
PROCEDURE: CT head and CT cervical spine without contrast. TECHNIQUE: Multiple contiguous axial images were obtained through the brain and cervical spine without the use of intravenous contrast. Sagittal and coronal reformations through the cervical spine were then performed. Auto Exposure Controls were utilized during the CT exam to meet ALARA standards for radiation dose reduction. INDICATION: Fall. Altered mental status. Injury. COMPARISON: 03/27/2021. FINDINGS: CT HEAD: The ventricles and cortical sulci are diffusely prominent, compatible with age-related volume loss. There are confluent areas of abnormal, low attenuation in the periventricular white matter. This is consistent with chronic small vessel ischemic changes. There is no midline shift or mass-effect. No acute intra-axial hemorrhage is seen. There are no abnormal areas of increased or decreased density to suggest acute hemorrhage or edema. No extra-axial masses or collections are present. The bony calvarium is intact. The visualized paranasal sinuses show minimal scattered mucosal thickening. The mastoid air cells are clear. CT CERVICAL SPINE: Static alignment of the cervical spine is maintained. There is no significant scarlett- or retro-listhesis. There is no evidence of jumped facets. Vertebral body heights are maintained. There is no acute fracture. No bony fragments are seen within the spinal canal. Mild multilevel degenerative changes are noted. Pre- and para-vertebral soft tissue structures are unremarkable. There is calcified carotid atherosclerosis. Included portions of the lung apices show mild emphysematous changes. There is also 1.2 cm hypodense left thyroid nodule. IMPRESSION: 1. No acute intracranial abnormality. No CT evidence of mass, acute infarct or intracranial hemorrhage. 2. Chronic small vessel ischemic changes in the deep white matter. 3. No acute fracture or dislocation of the cervical spine. 4. Hypodense left thyroid nodule. Correlation with dedicated thyroid sonogram is recommended and could be performed on a nonemergent basis. Dictated by: Dictated on workstation # [id number]
--- NOTE | 2022-03-28 13:27 | Diagnostic Imaging Report ---
PROCEDURE: CT chest, abdomen, and pelvis without contrast. TECHNIQUE: Multiple contiguous axial images were obtained through the chest, abdomen, and pelvis without the use of intravenous contrast. Auto Exposure Controls were utilized during the CT exam to meet ALARA standards for radiation dose reduction. INDICATION: Fall and confusion. FINDINGS: CT CHEST: No mediastinal hematoma is identified. No pericardial or pleural fluid is identified. No definite pulmonary contusion or pneumothorax is detected. Bony structures appear nonacute. IMPRESSION: Unremarkable noncontrast CT of the chest. CT ABDOMEN AND PELVIS: Evaluation of the abdominal and pelvic solid visceral organs is limited without intravenous contrast. No definite focal liver or splenic abnormality is seen. There is no perihepatic or perisplenic fluid. Gallbladder is unremarkable. Pancreas is unremarkable. Adrenal glands and kidneys are unremarkable. Aorta is calcified but nonaneurysmal. No free fluid or hemoperitoneum is identified. The bowel loops are normal in caliber. There is uncomplicated sigmoid diverticulosis. The bladder is unremarkable. There is a small left ovarian cyst measuring 26 mm. Evaluation of bony structures does show postop changes to the right hip. No acute bony abnormality is identified. IMPRESSION: 1. No evidence of abdominal or pelvic visceral injury. 2. Uncomplicated diverticulosis. Dictated by: Dictated on workstation # [id number]
[2022-03-28 13:52] VITALS: BP 135/67
== END 2022-03-28 13:51 | disposition home or self-care (01) ==
LOC: EDUNIT# 11:11 → ER FS 11:12
DX: S51.011A Laceration without foreign body of right elbow, initial encounter (principal); S00.411A Abrasion of right ear, initial encounter; M54.50 Low back pain, unspecified; E04.1 Nontoxic single thyroid nodule; N17.9 Acute kidney failure, unspecified; Z79.01 Long term (current) use of anticoagulants; Z79.891 Long term (current) use of opiate analgesic; Z79.83 Long term (current) use of bisphosphonates; Z79.811 Long term (current) use of aromatase inhibitors; Z79.899 Other long term (current) drug therapy; W01.0XXA Fall on same level from slipping, tripping and stumbling without subsequent striking against object, initial encounter; Y93.01 Activity, walking, marching and hiking; Y92.009 Unspecified place in unspecified non-institutional (private) residence as the place of occurrence of the external cause
CPT/HCPCS: 36415; 70450; 71250; 72125; 74176; 80053; 85025; 96360

== ENCOUNTER 2022-04-02 13:54 | Emergency (ER) | payer MEDICARE, MEDICAID ==
[~2022-04-02] VITALS: Ht 154 cm; Wt 59.0 kg
[2022-04-02 14:11] VITALS: BP 131/53
--- NOTE | 2022-04-02 14:22 | ED General ---
General Chief Complaint: General Problems/Pain Stated Complaint: RT ANKLE AWELLING Nursing Triage Note: Patient has been brought to ER by EMS with cc of a fall and left ankle pain and swelling. Patient denies a fall and she states that she just "scootted her foot on the floor". She is tender to her left hip with palpation of her hip Source of Information: Patient, EMS, Old Records History of Present Illness Date Seen by Provider: Apr 02, 2022 Time Seen by Provider: 13:54 Initial Comments 66-year-old female presenting by EMS from home due to swelling in her left ankle and pain. EMS reports that the daughter had called 911 and wanted her evaluated here in [place] for admission. The daughter had told EMS the thought that the patient was not taking her medicines correctly. Patient lives at home by herself. Patient is denying any fall but states that she had scooted on the floor and caused an abrasion to her ankle. She has had 2 previous emergency department visits here at [place] in the last week. On Mar 27 she was seen for a fall with an elbow laceration and then again on Mar 28 for concern that she was taking too many medicines. She states she lives alone and uses a walker to get around. She has had a prior fracture and injury to her left leg in the past. Patient herself states she does not know why she had been sent to the emergency department. She had no complaint other than pain and swelling in left ankle. Severity: Mild Modifying Factors: worse with Movement Associated Systoms: No Chest Pain, No Cough, No Diaphoresis, No Fever/Chills, No Headaches, No Nausea/Vomiting, No Seizure, No Shortness of Air, No Syncope; Weakness (generalized) Allergies and Home Medications Allergies Coded Allergies: No Known Drug Allergies (Unverified , 03/27/21) Patient Home Medication List Home Medication List Reviewed: Yes Review of Systems Review of Systems Constitutional: No fever; weakness (general) EENTM: no symptoms reported Respiratory: no symptoms reported Cardiovascular: no symptoms reported Gastrointestinal: no symptoms reported Genitourinary: no symptoms reported Musculoskeletal: see HPI Skin: no symptoms reported Psychiatric/Neurological: See HPI Past Ttujdto-Ncbhgs-Lbzjim Hx Patient Social History Tobacco Use?: No Use of E-Cig and/or Vaping dev: No Substance use?: No Alcohol Use?: No Pt feels they are or have been: No Past Medical History Surgery/Hospitalization HX: Anxiety; Mental health disorder; Physical Exam Vital Signs Vital Signs - First Documented 04/02/22 14:11 Temp 36.1 Pulse 98 Resp 20 B/P (MAP) 131/53 (79) Pulse Ox 95 O2 Delivery Room Air Capillary Refill : Height, Weight, BMI Height: '" Weight: lbs. oz. kg; 24.00 BMI Method: General Appearance: No Apparent Distress, Chronically ill HEENT: PERRL/EOMI, Pharynx Normal Neck: Full Range of Motion, Normal Inspection, Non Tender, Supple Respiratory: Chest Non Tender, Lungs Clear, Normal Breath Sounds Cardiovascular: Regular Rate, Rhythm, Normal Peripheral Pulses, Systolic Murmur Gastrointestinal: Normal Bowel Sounds, No Pulsatile Mass, Non Tender, Soft Rectal: Deferred Extremity: Normal Capillary Refill, No Pedal Edema, Swelling (swelling with tenderness to left ankle), Other (tender to palpation left hip without crepitus or step off) Neurologic/Psychiatric: Alert, Oriented x3, 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 Norm as Tested Skin: Warm/Dry Progress/Results/Core Measures Suspected Sepsis SIRS Temperature: Pulse: 98 Respiratory Rate: 20 Blood Pressure 131 /53 Mean: 79 Results/Orders My Orders Orders - MARIFER LITTLE MD Pelvis With Left Hip 2-3 View (04/02/22 14:03) Ankle 3 View Left (04/02/22 14:03) Vital Signs/I&O 04/02/22 14:11 Temp 36.1 Pulse 98 Resp 20 B/P (MAP) 131/53 (79) Pulse Ox 95 O2 Delivery Room Air Capillary Refill : Blood Pressure Mean: 79 Progress Note #1: Progress Note Potential diagnosis of ankle fracture, hip fracture, frequent falls, poly pharmacy Obtain x-rays of the left ankle and pelvis with left hip looking for signs of acute bony abnormality. Reviewed previous emergency department visits from March 27 and March 28. Progress Note #2: Time: 14:26 Progress Note On my personal review and interpretation her three-view films of the left ankle and pelvis with left hip x-rays did not demonstrate any acute fracture or dislocation. She has evidence of prior fractures to the tibia and fibula on the left side that have healed. Will see if patient can get up to commode or use walker here to ambulate. Progress Note #3: Time: 14:42 Progress Note Patient able to get up from bed and walk to chair without assistance. She is favoring her left ankle and foot but is able to bear weight and did not need help to get from bed to a chair in the room. Will discharge to home with recommendations for acetaminophen for pain. 650 mg over the counter every 6 hours as needed for pain. Ice and elevate the ankle to help with pain and swelling. Follow up with Dr. Koch's office for continued concerns and work with them if she needs additional assistance at home or arranging for assisted living or residential care. Diagnostic Imaging Diagonstic Imaging: Xray Plain Films/CT/US/NM/MRI: pelvis, hip Comments NAME: BERNARD ROSA [facility] REC#: [id number] PT STATUS: REG ER : 1955 PHYSICIAN: MARIFER LITTLE MD ADMIT DATE: 04/02/22/ER FS Draft Date of Exam:04/02/22 PELVIS WITH LEFT HIP 2-3 VIEW EXAMINATION: Pelvis, single view. Left hip, 2 views. COMPARISON: March 27, 2021. HISTORY: 66-year-old female, pelvic and left hip pain. FINDINGS: There are fixation screws traversing the prior right femoral neck fracture. The fixation screws are intact. There is mild deformity relating to the prior fracture. The bones appear very likely demineralized. The pubic symphysis and sacroiliac joints are normally aligned. The left hip is not dislocated. There is no joint space loss of either hip, osteophyte formation, or subchondral cystic change. There is no identified acute fracture. There are sutures overlying the right and left sides of the pelvis. There are degenerative changes of the lower lumbar spine. IMPRESSION: 1. No identified acute bony abnormality of the pelvis or left hip. 2. The bones appear demineralized. 3. Degenerative changes of the lower lumbar spine. 4. Intact fixation screws traversing the prior right femoral neck fracture. Dictated on workstation # [id number] Dict: 04/02/22 1431 Trans: 04/02/22 1435 CV [id number] Interpreted by: BISI LAMB MD Electronically signed by: Reviewed: Reviewed by Me (I reviewed radiologist report at 1442) Diagonstic Imaging: Xray Plain Films/CT/US/NM/MRI: ankle Comments [facility]. [place], [place] NAME: BERNARD ROSA [facility] REC#: [id number] PT STATUS: REG ER : 1955 PHYSICIAN: MARIFER LITTLE MD ADMIT DATE: 04/02/22/ER FS Draft Date of Exam:04/02/22 ANKLE 3 VIEW LEFT EXAMINATION: Left ankle radiographs, 3 views. COMPARISON: None. HISTORY: 66-year-old female, left ankle pain and swelling. FINDINGS: There are healed prior fracture deformities of the mid to distal tibial diaphysis and distal fibular diaphysis. There is severe tibiotalar joint space loss with mild osteophyte formation. There is no tibiotalar joint effusion. There is a very small calcaneal heel spur. There is no identified acute fracture. There is likely diffuse subcutaneous edema. IMPRESSION: 1. Diffuse subcutaneous edema without radiographic evidence of osteomyelitis or other acute osseous abnormality. 2. Severe tibiotalar arthritis. 3. Healed prior fracture deformities of the mid to distal tibial diaphysis and distal fibular diaphysis. Dictated on workstation # [id number] Dict: 04/02/22 1430 Trans: 04/02/22 [facility] [id number] Interpreted by: BISI LAMB MD Electronically signed by: Reviewed: Reviewed by Me (I reviewed radiologist report at 1442) Departure Impression Primary Impression: Pain and swelling of left ankle Additional Impressions: Arthritis of ankle, left, degenerative Qualified Codes: M19.072 - Primary osteoarthritis, left ankle and foot Acute pain of left hip Disposition: 01 HOME, SELF-CARE Condition: Stable Departure-Patient Inst. Decision time for Depature: 14:49 Referrals: CHENG BARRERA MD (PCP/Family) Primary Care Physician Patient Instructions: Hip Pain ED, Ankle Sprain ED, Using Cold for Pain Add. Discharge Instructions: Try to rest and elevate left ankle to help with swelling. May try ice pack in addition to elevation to help with swelling. Apply ice for 10-15 minutes every few hours as needed for pain and swelling. Acetaminophen 650 mg every 6 hours as needed for pain Work with your primary care provider, Dr. Koch and his office, if you need additional help at home. All discharge instructions reviewed with patient and/or family. Voiced understanding. MARIFER LITTLE MD Apr 02, 2022 14:22
--- NOTE | 2022-04-02 14:32 | Diagnostic Imaging Report ---
EXAMINATION: Left ankle radiographs, 3 views. COMPARISON: None. HISTORY: 66-year-old female, left ankle pain and swelling. FINDINGS: There are healed prior fracture deformities of the mid to distal tibial diaphysis and distal fibular diaphysis. There is severe tibiotalar joint space loss with mild osteophyte formation. There is no tibiotalar joint effusion. There is a very small calcaneal heel spur. There is no identified acute fracture. There is likely diffuse subcutaneous edema. IMPRESSION: 1. Diffuse subcutaneous edema without radiographic evidence of osteomyelitis or other acute osseous abnormality. 2. Severe tibiotalar arthritis. 3. Healed prior fracture deformities of the mid to distal tibial diaphysis and distal fibular diaphysis. Dictated by: Dictated on workstation # [id number]
--- NOTE | 2022-04-02 14:35 | Diagnostic Imaging Report ---
EXAMINATION: Pelvis, single view. Left hip, 2 views. COMPARISON: March 27, 2021. HISTORY: 66-year-old female, pelvic and left hip pain. FINDINGS: There are fixation screws traversing the prior right femoral neck fracture. The fixation screws are intact. There is mild deformity relating to the prior fracture. The bones appear very likely demineralized. The pubic symphysis and sacroiliac joints are normally aligned. The left hip is not dislocated. There is no joint space loss of either hip, osteophyte formation, or subchondral cystic change. There is no identified acute fracture. There are sutures overlying the right and left sides of the pelvis. There are degenerative changes of the lower lumbar spine. IMPRESSION: 1. No identified acute bony abnormality of the pelvis or left hip. 2. The bones appear demineralized. 3. Degenerative changes of the lower lumbar spine. 4. Intact fixation screws traversing the prior right femoral neck fracture. Dictated by: Dictated on workstation # [id number]
== END 2022-04-02 15:00 | disposition home or self-care (01) ==
LOC: EDUNIT# 13:54 → ER FS 13:55
DX: M19.072 Primary osteoarthritis, left ankle and foot (principal); M25.552 Pain in left hip; Z28.310 Unvaccinated for COVID-19
CPT/HCPCS: 73502; 73610

== ENCOUNTER → 2022-04-20 | Outpatient (CLI) | payer MEDICARE, MEDICAID ==
[2022-04-20 09:20] LABS: COLOR,URINE YELLOW
[2022-04-20 09:21] LABS: BILIRUBIN,URINE NEGATIVE (NEGATIVE); CLARITY,URINE CLOUDY; GLUCOSE, URINE (UA) NEGATIVE (NEGATIVE); KETONES,URINE NEGATIVE (NEGATIVE); LEUKOCYTE ESTERASE ,URINE 2+ (NEGATIVE); NITRITE,URINE POSITIVE (NEGATIVE); PH,URINE 5.5 (5-9); PROTEIN,URINE TRACE (NEGATIVE); WBC,URINE TNTC /HPF
[2022-04-20 09:30] LABS: ALBUMIN 4.2 GM/DL (3.2-4.5); BILIRUBIN,TOTAL 0.2 MG/DL (0.1-1.0); CALCIUM 9.5 MG/DL (8.5-10.1); CREATININE SERUM 0.72 MG/DL (0.60-1.30); HEMATOCRIT 37 % (35-52); HEMOGLOBIN 11.6 g/dL (11.5-16.0); MEAN CORPUSCULAR HEMOGLOBIN 28 pg (25-34); MEAN CORPUSCULAR HGB CONC 31 g/dL (32-36); MEAN CORPUSCULAR VOLUME 88 fL (80-99); MEAN PLATELET VOLUME 9.9 fL (9.0-12.2); PLATELET COUNT 406 10^3/uL (130-400); POTASSIUM 3.9 MMOL/L (3.6-5.0); WHITE BLOOD COUNT 9.4 10^3/uL (4.3-11.0)
== END ==
PROVIDERS: ATTEND Emergency Medicine
DX: M62.82 Rhabdomyolysis (principal); D72.829 Elevated white blood cell count, unspecified
CPT/HCPCS: 80053; 81000; 85027; 87088

== ENCOUNTER → 2022-12-31 | Outpatient (CLI) | payer MEDICARE, MEDICAID ==
--- NOTE | 2022-12-31 15:26 | Diagnostic Imaging Report ---
INDICATION: Postmenopausal state COMPARISON: 05/09/2020 FINDINGS: AP Spine L1-L4: [BMD (g/cm2): 1.025] [T-Score: -1.5] [Z-Score: 0.4] [BMD Previous: 1.147] [BMD % Change: -10.6*] LT Hip Neck: [BMD (g/cm2): 0.677] [T-Score: -2.6] [Z-Score: -0.8] LT Hip Total: [BMD (g/cm2):0.704] [T-Score:-2.4] [Z-Score: -0.8] [BMD Previous: 0.740] [BMD % Change: -4.9*] RT Hip Neck: [BMD (g/cm2):0.643] [T-Score:-2.8] [Z-Score:-1.0] RT Hip Total: [BMD (g/cm2):0.609] [T-score:-3.2] [Z-Score:-1.6] [BMD Previous:0.737] [BMD % Change:-17.4*] *Indicates significant change from prior examination based on 95% confidence level. World Health Organization criteria for BMD interpretation classify patients as Normal (T-score at or above -1.0), Osteopenic (T-score between -1.0 and -2.5) or Osteoporotic (T-score at or below -2.5). LIMITATIONS AND MODIFICATION: None. IMPRESSION: 1. Osteoporosis. 2. Bone mineral density has decreased by a statistically significant amount, as detailed above. 3. See below National Osteoporosis Foundation guidelines on when to potentially initiate pharmacologic therapy. Based on the National Osteoporosis Foundation Guidelines, pharmacologic treatment should be initiated in any of the following, unless clinical conditions suggest otherwise: * Any patient with prior fragility fracture of the hip or vertebrae. A spine fracture indicates 5X risk for subsequent spine fracture and 2X risk for subsequent hip fracture. * Osteoporosis (T-score <-2.5). * Postmenopausal women and men age 50 and older with low bone mass/osteopenia (T-score between -1.0 and -2.5) by DXA and 10-year major osteoporotic fracture greater than 20% or a 10-year probability of hip fracture greater than 3%. These fracture risks are supplied above in the FRAX score, if applicable. * Clinician judgement and/or patient preferences may indicate treatment for people with 10-year fracture probabilities above or below these levels. Dictated by: Dictated on workstation # [id number]
== END ==
LOC: RAD 09:23
PROVIDERS: ATTEND Nurse Practitioner Family
DX: M81.0 Age-related osteoporosis without current pathological fracture (principal); M15.0 Primary generalized (osteo)arthritis; Z78.0 Asymptomatic menopausal state
CPT/HCPCS: 77080